=== PATIENT | female | born 1960 | race Caucasian/White ===

== ENCOUNTER 2017-06-26 18:38 | Emergency (ER) | payer SELFPAY ==
[~2017-06-26] VITALS: Ht 157.5 cm; Wt 73.0 kg
[2017-06-26 22:44] LABS: CLARITY URINE CLEAR (CLEAR); COLOR URINE YELLOW (YELLOW); GLUCOSE URINE NEGATIVE (NEGATIVE); KETONES URINE NEGATIVE (NEGATIVE); LEUKOCYTE ESTERASE URINE 2+ (NEGATIVE); NITRITE URINE NEGATIVE (NEGATIVE); OCCULT BLOOD URINE NEGATIVE (NEGATIVE); PH URINE 6.5 (4.5-8.0); PROTEIN URINE TRACE (NEGATIVE); SPECIFIC GRAVITY URINE 1.007 (1.005-1.030); UROBILINOGEN URINE 0.2 E.U./dL (0.2-1.0)
[2017-06-27 02:23] VITALS: BP 124/64
== END 2017-06-27 02:27 | disposition home or self-care (01) ==
LOC: ER 22:08
DX: K59.00 Constipation, unspecified (principal); I10 Essential (primary) hypertension; R10.30 Lower abdominal pain, unspecified
CPT/HCPCS: 74000; 81001; 99285; Z7610